=== PATIENT | female | born 1935 | race Caucasian/White ===

== ENCOUNTER 2017-11-06 11:14 | Observation (INO) | payer OTHER ==
[~2017-11-06] VITALS: Ht 162.6 cm; Wt 96.9 kg
[2017-11-06 15:53] LABS: HEMATOCRIT 37.6 % (36.0-46.0); MCH 30.6 PG (29.0-34.0); MCV 92.8 FL (83-99); MEAN PLAT.VOLUME 9.9 uM^3 (9.5-12.4); PLATELET COUNT 231 K/uL (156-360); RBC DIS.WIDTH-SD 44.4 % (39-53); RED BLOOD COUNT 4.05 M/uL (3.80-5.20); WHITE BLOOD COUNT 10.3 K/uL (4.1-10.2)
[2017-11-06 16:01] LABS: CHLORIDE 100 mEq/L (99-109); POTASSIUM 4.3 mEq/L (3.7-5.4); SODIUM 136 mEq/L (136-147)
[2017-11-06 16:03] LABS: GLUCOSE 150 mg/dL (70-99)
[2017-11-06 16:05] LABS: ANION GAP 9 MEQ/L (2-14)
[2017-11-06 16:07] LABS: GFR ESTIMATE (CALCULATED) 46 mL/min/
[2017-11-06 16:08] LABS: UREA NITROGEN (BUN) 17 mg/dL (9-23)
[2017-11-06 16:14] LABS: TROP-I INTERPRETATION NEGATIVE; TROPONIN-I < 0.01 ng/mL (0.0-0.30)
[2017-11-06 21:22] VITALS: BP 131/66
[2017-11-06 23:52] VITALS: BP 118/52
[2017-11-07 00:57] LABS: TROP-I INTERPRETATION NEGATIVE; TROPONIN-I < 0.01 ng/mL (0.0-0.30)
[2017-11-07 03:57] VITALS: BP 138/62
[2017-11-07 05:38] LABS: TROP-I INTERPRETATION NEGATIVE; TROPONIN-I < 0.01 ng/mL (0.0-0.30)
[2017-11-07 10:00] VITALS: BP 140/61
[2017-11-07 12:19] VITALS: BP 128/58
[2017-11-07 15:29] VITALS: BP 164/70
[2017-11-07] MEDS ORDERED: METFORMIN HCL500 MG PO (20:25)
[2017-11-07] MEDS ORDERED: COZAAR100 MG PO (20:25)
[2017-11-07] MEDS ORDERED: GABAPENTIN600 MG PO (20:26)
[2017-11-07] MEDS ORDERED: FUROSEMIDE20 MG PO (20:26)
[2017-11-07] MEDS ORDERED: CYMBALTA60 MG PO (20:27)
[2017-11-07] MEDS ORDERED: XALATAN2.5 ML BOTH EYES (20:28)
[2017-11-07] MEDS ORDERED: ASPIR 8181 M1 PO (20:30)
[2017-11-07] MEDS ORDERED: VITAMIN B122500 MCG PO (20:31)
[2017-11-07] MEDS ORDERED: VITAMIN D31000 UNIT PO (20:32)
[2017-11-07 21:15] VITALS: BP 147/68
[2017-11-07 22:02] LABS: POINT-OF-CARE METER ID UU14302475
[2017-11-08 00:09] VITALS: BP 139/65
[2017-11-08 03:42] VITALS: BP 153/65
[2017-11-08 05:22] LABS: MCH 29.4 PG (29.0-34.0); MCHC 32.2 G/DL (30.0-36.0); MCV 91.4 FL (83-99); MEAN PLAT.VOLUME 10.4 uM^3 (9.5-12.4); PLATELET COUNT 239 K/uL (156-360); RBC DIS.WIDTH-CV 12.6 % (11.8-14.6); RBC DIS.WIDTH-SD 42.6 % (39-53); RED BLOOD COUNT 3.94 M/uL (3.80-5.20); WHITE BLOOD COUNT 7.4 K/uL (4.1-10.2)
[2017-11-08 05:43] LABS: ANION GAP 8 MEQ/L (2-14); CHLORIDE 105 MEQ/L (99-109); GFR ESTIMATE (CALCULATED) 39 mL/min/; GLUCOSE 123 mg/dL (70-99); POTASSIUM 4.2 MEQ/L (3.7-5.4); SAMPLE HEMOLYSIS CHECK 0; SAMPLE ICTERIC CHECK 0; SAMPLE LIPEMIA CHECK 0; SODIUM 142 MEQ/L (136-147); UREA NITROGEN (BUN) 23 mg/dL (9-23)
[2017-11-08 07:59] LABS: POINT-OF-CARE METER ID UU13113831
[2017-11-08 09:10] LABS: ADD MIUA? YES; BILIRUBIN NEGATIVE; BLOOD NEGATIVE; COLOR YELLOW ((YELLOW)); GLUCOSE (STRIP) NEGATIVE; KETONES NEGATIVE; LEUKOCYTES SMALL; NITRITE POSITIVE; PROTEIN (STRIP) NEGATIVE; SPECIFIC GRAVITY 1.015 (1.000-1.030); UROBILINOGEN 0.2 MG/DL (0.2-1.0)
[2017-11-08 09:31] LABS: BACTERIA 2+ /HPF; EPITHELIAL CELLS 1+ /HPF; HYALINE CASTS 0-5 /LPF; MUCUS 2+ /LPF; WHITE BLOOD CELLS 0-5 /HPF (0-5)
[2017-11-08 09:49] VITALS: BP 129/58
[2017-11-08 11:46] VITALS: BP 174/73
[2017-11-08 12:00] LABS: POINT-OF-CARE METER ID UU14162513
[2017-11-08] MEDS ORDERED: NOVOLOG 10100 UNITS/ SC (16:20)
[2017-11-08] MEDS ORDERED: ACID REDUCER20 MG PO (16:45)
[2017-11-08] MEDS ORDERED: LOVENOX40 MG/0.4 SC (16:46)
[2017-11-09] MEDS ORDERED: VOLTAREN 1% GE100 GM TP (11:43)
[2017-11-09] MEDS ORDERED: METFORMIN HCL500 MG PO (12:37)
[2017-11-09] MEDS ORDERED: GLIPIZIDE ER2.5 MG PO (12:37)
[2017-11-09] MEDS ORDERED: FUROSEMIDE20 MG PO (12:37)
== END 2017-11-08 14:26 ==
LOC: EME 11:14 → 5WEST 20:06 → EDOF 20:06 → ENRESERV 20:14 → 5WEST 21:15
PROVIDERS: Hospitalist; Physician Assistant; Physician Assistant Medical
DX: R60.0 Localized edema (principal); R26.89 Other abnormalities of gait and mobility; G47.33 Obstructive sleep apnea (adult) (pediatric); Z91.19 Patient's noncompliance with other medical treatment and regimen; R09.02 Hypoxemia; I25.10 Atherosclerotic heart disease of native coronary artery without angina pectoris; Z95.5 Presence of coronary angioplasty implant and graft; I10 Essential (primary) hypertension; E78.5 Hyperlipidemia, unspecified; E11.9 Type 2 diabetes mellitus without complications; R94.31 Abnormal electrocardiogram [ECG] [EKG]; E66.01 Morbid (severe) obesity due to excess calories; Z68.36 Body mass index [BMI] 36.0-36.9, adult; Z88.0 Allergy status to penicillin; Z60.2 Problems related to living alone; Z80.6 Family history of leukemia; Z90.710 Acquired absence of both cervix and uterus
CPT/HCPCS: 71010; 73610; 76770; 80048; 81003; 82306; 82607; 82746; 82948; 83880; 84443; 84484; 85027; 87077; 87086; 87186; 93005; 93306; 93970; 94660; 94799; 97530 GO; 99281; 99285; G0378; G8978 GP CJ; G8979 GP CI; G8987 CK; G8988 GO CJ; J1885; J2270

== ENCOUNTER 2017-11-08 14:44 | Inpatient (IN) | payer OTHER ==
[~2017-11-08] VITALS: Ht 162.6 cm; Wt 98.0 kg
[~2017-11-08 14:44] MED LIST: ASPIR 8181 M1 PO; COZAAR100 MG PO; CYMBALTA60 MG PO; FUROSEMIDE20 MG PO; GABAPENTIN600 MG PO; METFORMIN HCL500 MG PO; VITAMIN B122500 MCG PO; VITAMIN D31000 UNIT PO; XALATAN2.5 ML BOTH EYES
[2017-11-08 14:58] VITALS: BP 152/69
[2017-11-08] MEDS ORDERED: NOVOLOG 10100 UNITS/ SC (16:20)
[2017-11-08] MEDS ORDERED: ACID REDUCER20 MG PO (16:45)
[2017-11-08] MEDS ORDERED: LOVENOX40 MG/0.4 SC (16:46)
[2017-11-09 00:30] VITALS: BP 162/70
[2017-11-09 05:57] LABS: HEMATOCRIT 37.2 % (36.0-46.0); MCH 29.3 PG (29.0-34.0); MCHC 32.3 G/DL (30.0-36.0); MCV 90.7 FL (83-99); PLATELET COUNT 263 K/uL (156-360); RBC DIS.WIDTH-CV 12.7 % (11.8-14.6); RBC DIS.WIDTH-SD 41.8 % (39-53); WHITE BLOOD COUNT 7.5 K/uL (4.1-10.2)
[2017-11-09 06:06] VITALS: BP 145/65
[2017-11-09 06:21] LABS: ALBUMIN 3.4 G/DL (3.2-4.8); ALKALINE PHOSPHATASE 55 IU/L (3-129); ALT (GPT) 10 IU/L (3-49); AST (GOT) 12 IU/L (2-34); CHLORIDE 106 MEQ/L (99-109); CREATININE 1.2 MG/DL (0.6-1.3); GFR ESTIMATE (CALCULATED) 46 mL/min/; GLUCOSE 126 mg/dL (70-99); POTASSIUM 4.3 MEQ/L (3.7-5.4); SODIUM 141 MEQ/L (136-147); TOTAL BILIRUBIN 0.4 MG/DL (0.0-1.0); TOTAL PROTEIN 6.1 G/DL (6.4-8.3); UREA NITROGEN (BUN) 18 mg/dL (9-23)
[2017-11-09] MEDS ORDERED: VOLTAREN 1% GE100 GM TP (11:43)
[2017-11-09] MEDS ORDERED: GLIPIZIDE ER2.5 MG PO (12:37)
[2017-11-09] MEDS ORDERED: METFORMIN HCL500 MG PO (12:37)
[2017-11-09] MEDS ORDERED: FUROSEMIDE20 MG PO (12:37)
[2017-11-09 15:27] VITALS: BP 154/67
[2017-11-10 05:36] VITALS: BP 121/60
[2017-11-10 15:00] VITALS: BP 130/62
[2017-11-11 06:24] VITALS: BP 137/63
[2017-11-11 15:21] VITALS: BP 123/59
[2017-11-12 06:11] VITALS: BP 166/73
[2017-11-12 15:17] VITALS: BP 140/60; BP 186/76
[2017-11-13 05:54] VITALS: BP 130/61
[2017-11-13 15:10] VITALS: BP 128/58
[2017-11-14 05:18] VITALS: BP 150/68
[2017-11-14 15:13] VITALS: BP 139/70
[2017-11-15 05:28] VITALS: BP 148/63
[2017-11-15 15:26] VITALS: BP 151/63
[2017-11-16 05:23] VITALS: BP 126/63
[2017-11-16 15:58] VITALS: BP 176/74
[2017-11-16 17:18] VITALS: BP 138/60
[2017-11-17 05:19] VITALS: BP 153/66
[2017-11-17 16:06] VITALS: BP 170/69
[2017-11-17 17:23] VITALS: BP 148/62
[2017-11-18 06:12] VITALS: BP 162/64
[2017-11-18 15:00] VITALS: BP 164/60; BP 64/60
[2017-11-19 05:51] VITALS: BP 144/72
[2017-11-19 15:27] VITALS: BP 132/59
[2017-11-19 18:33] LABS: APPEARANCE CLEAR ((CLEAR)); BILIRUBIN NEGATIVE; BLOOD NEGATIVE; COLOR YELLOW ((YELLOW)); GLUCOSE (STRIP) NEGATIVE; KETONES NEGATIVE; LEUKOCYTES NEGATIVE; NITRITE NEGATIVE; PROTEIN (STRIP) NEGATIVE; UROBILINOGEN 0.2 MG/DL (0.2-1.0)
[2017-11-20 05:39] LABS: HEMATOCRIT 36.2 % (36.0-46.0); HEMOGLOBIN 11.8 G/DL (11.9-15.5); MCH 29.5 PG (29.0-34.0); MCHC 32.6 G/DL (30.0-36.0); MCV 90.5 FL (83-99); PLATELET COUNT 324 K/uL (156-360); RBC DIS.WIDTH-CV 12.4 % (11.8-14.6)
[2017-11-20 05:42] VITALS: BP 168/71
[2017-11-20 06:03] LABS: ALBUMIN 3.3 G/DL (3.2-4.8); ALKALINE PHOSPHATASE 68 IU/L (3-129); ALT (GPT) 12 IU/L (3-49); AST (GOT) 11 IU/L (2-34); CHLORIDE 104 MEQ/L (99-109); CREATININE 1.2 MG/DL (0.6-1.3); GFR ESTIMATE (CALCULATED) 46 mL/min/; GLUCOSE 165 mg/dL (70-99); POTASSIUM 4.5 MEQ/L (3.7-5.4); SODIUM 139 MEQ/L (136-147); TOTAL BILIRUBIN 0.4 MG/DL (0.0-1.0); TOTAL PROTEIN 6.7 G/DL (6.4-8.3); UREA NITROGEN (BUN) 23 mg/dL (9-23)
[2017-11-20 15:04] VITALS: BP 162/72
[2017-11-21 04:13] VITALS: BP 153/63
[2017-11-21 15:33] VITALS: BP 127/56
[2017-11-22 05:16] VITALS: BP 148/65
[2017-11-22 06:07] LABS: HEMATOCRIT 34.9 % (36.0-46.0); HEMOGLOBIN 11.3 G/DL (11.9-15.5); MCH 29.8 PG (29.0-34.0); MCHC 32.4 G/DL (30.0-36.0); MCV 92.1 FL (83-99); PLATELET COUNT 333 K/uL (156-360); RBC DIS.WIDTH-CV 12.6 % (11.8-14.6); RED BLOOD COUNT 3.79 M/uL (3.80-5.20); WHITE BLOOD COUNT 8.1 K/uL (4.1-10.2)
[2017-11-22 06:28] LABS: CHLORIDE 105 MEQ/L (99-109); CREATININE 1.1 MG/DL (0.6-1.3); GFR ESTIMATE (CALCULATED) 51 mL/min/; GLUCOSE 149 mg/dL (70-99); POTASSIUM 4.7 MEQ/L (3.7-5.4); SODIUM 140 MEQ/L (136-147); UREA NITROGEN (BUN) 25 mg/dL (9-23)
[2017-11-22 16:53] VITALS: BP 145/63
[2017-11-23 05:16] VITALS: BP 157/60
== END 2017-11-23 13:15 | disposition home health service (06) | DRG 946 ==
LOC: 3WEST 14:44 → ENPENDDIS 11-23 → 3WEST 11-23 13:15
PROVIDERS: Physical Medicine & Rehabilitation Pain Medicine
PROC: F07M0ZZ Range of Motion and Joint Mobility Treatment of Musculoskeletal System - Whole Body (ICD-10-PCS; principal; 2017-11-08)
DX: R53.1 Weakness (principal); M79.7 Fibromyalgia; M79.604 Pain in right leg; M79.605 Pain in left leg; E78.5 Hyperlipidemia, unspecified; G47.33 Obstructive sleep apnea (adult) (pediatric); E66.01 Morbid (severe) obesity due to excess calories; M19.072 Primary osteoarthritis, left ankle and foot; Z68.37 Body mass index [BMI] 37.0-37.9, adult; I25.10 Atherosclerotic heart disease of native coronary artery without angina pectoris; I10 Essential (primary) hypertension; D64.9 Anemia, unspecified; J44.9 Chronic obstructive pulmonary disease, unspecified; R60.0 Localized edema; R26.2 Difficulty in walking, not elsewhere classified
CPT/HCPCS: 73630; 78315; 78999; 80048; 80053; 81003; 82948; 84550; 85027; 87086; 97110 GO; 97530 GP; A9503